=== PATIENT | female | born 1955 | race Caucasian/White ===

== ENCOUNTER 2017-06-09 15:48 | Emergency (ER) | payer MEDICARE, OTHER ==
[~2017-06-09] VITALS: Ht 157.5 cm; Wt 63.6 kg
[~2017-06-09 15:48] MED LIST: METF500T4 PO
[2017-06-09] MEDS ORDERED: ONDANSETRON 2MG/ML, 2ML IVPush ONE (16:00)
[2017-06-09] MEDS ORDERED: SODIUM CHLORIDE 0.9% 1,000ML IVBOLUS ONE (16:00)
[2017-06-09] MEDS ORDERED: SODIUM CHLORIDE FLUSH 10ML SYR IVF ONE (16:00)
[2017-06-09 16:17] LABS: HEMATOCRIT 42.5 % (34.6-47.8); HEMOGLOBIN 14.5 g/dL (11.7-16.4); WHITE BLOOD COUNT 13.4 x10^3/uL (3.4-10)
[2017-06-09 16:30] LABS: BLOOD UREA NITROGEN 11 mg/dL (7-18)
[2017-06-09 16:35] LABS: IS PT STATUS REG ER OR PRE ER? YES
[2017-06-09 17:26] VITALS: BP 117/72
== END 2017-06-09 17:31 | disposition home or self-care (01) ==
LOC: ED 16:16
DX: J20.9 Acute bronchitis, unspecified (principal); I10 Essential (primary) hypertension; E11.9 Type 2 diabetes mellitus without complications; E78.5 Hyperlipidemia, unspecified; R07.9 Chest pain, unspecified
CPT/HCPCS: 36415; 71010; 80048; 82040; 83605; 83880; 84484; 85025; 93005; 96360; 99285; J7030

== ENCOUNTER 2018-01-31 16:34 | Inpatient (IN) | payer MEDICARE, OTHER ==
[~2018-01-31] VITALS: Ht 157.5 cm; Wt 51.4 kg
[2018-01-31] MEDS ORDERED: MORPHINE SULFATE 4 MG/ML, 1ML IVPush PRN (17:00)
[2018-01-31] MEDS ORDERED: SODIUM CHLORIDE 0.9% 1,000ML IVBOLUS ONE (17:00)
[2018-01-31] MEDS ORDERED: SODIUM CHLORIDE FLUSH 10ML SYR IVF ONE (17:00)
[2018-01-31] MEDS ORDERED: ONDANSETRON ODT 4 MG PO ONE (17:00)
[2018-01-31 17:11] LABS: MEAN CORPUSCULAR HEMOGLOBIN 28.5 pg (27.0-34.8); MEAN CORPUSCULAR HGB CONC 33.1 g/dL (32.4-35.8); MEAN CORPUSCULAR VOLUME 86.2 fL (80-100); MEAN PLATELET VOLUME 9.6 fL (7.4-10.4); PLATELET COUNT 345 x10^3/uL (130-400); RED BLOOD COUNT 5.11 x10^6/uL (3.82-5.3); RED CELL DISTRIBUTION WIDTH 14.6 % (9.6-15.2)
[2018-01-31] MEDS ORDERED: GABA300C PO (17:15)
[2018-01-31 17:22] LABS: ALANINE AMINOTRANSFERASE 19 U/L (12-78); ANION GAP 7 mmol/L (5-15); CALCIUM 9.2 mg/dL (8.5-10.1); CHLORIDE 106 mmol/L (98-107); CREATININE 0.61 mg/dL (0.55-1.02)
[2018-01-31 17:24] LABS: ALKALINE PHOSPHATASE 135 U/L (45-117); BILIRUBIN,TOTAL 0.3 mg/dL (0.2-1.0); TOTAL PROTEIN 7.6 g/dL (6.4-8.2)
[2018-01-31] MEDS ORDERED: ONDANSETRON ODT 4 MG ONE (17:27)
[2018-01-31] MEDS ORDERED: MORPHINE SULFATE 4 MG/ML, 1ML ONE (17:27)
[2018-01-31 17:32] LABS: MICROSCOPIC AUTO
[2018-01-31 17:33] LABS: CULTURE INDICATED? NO
[2018-01-31 18:21] LABS: BASOPHILS # (AUTO) 0.03 x10^3/uL (0-0.1); BASOPHILS % (AUTO) 0 % (0-1); EOSINOPHILS # (AUTO) 0.05 x10^3/uL (0-0.4); EOSINOPHILS % (AUTO) 0 % (1-7); LYMPHOCYTES # (AUTO) 2.87 x10^3/uL (1-3.4); LYMPHOCYTES % (AUTO) 13 % (22-44); MONOCYTES # (AUTO) 0.97 x10^3/uL (0.2-0.8); MONOCYTES % (AUTO) 4 % (2-9); NEUTROPHILS # (AUTO) 18.02 x10^3/uL (1.8-6.8); NEUTROPHILS % (AUTO) 82 % (42-75)
[2018-01-31 18:22] LABS: <PLATELET ESTIMATE> ADEQUATE
[2018-01-31 18:23] LABS: <PLT MORPHOLOGY> NORMAL PLT MORPH
[2018-01-31 18:27] LABS: MD SCAN
[2018-01-31 18:31] LABS: <RBC MORPHOLOGY> NORMAL; LYMPH#(MANUAL) 2.85 x10^3/uL (1-3.4); LYMPHS% (MANUAL) 13 % (22-44); MONOS#(MANUAL) 0.88 x10^3/uL (0.3-2.7); MONOS% (MANUAL) 4 % (2-9); SEGS% (MANUAL) 83 % (42-75)
[2018-01-31] MEDS ORDERED: OMNIPAQUE 350 MG/ML, 100ML BOTTLE ONE (19:13)
[2018-01-31] MEDS ORDERED: CEFTRIAXONE PMX 1GM/50ML 50 ML ONE (19:44)
[2018-01-31] MEDS ORDERED: METRONIDAZOLE PMX 500MG/100ML 100 ML ONE (19:44)
[2018-01-31] MEDS ORDERED: METRONIDAZOLE PMX 500MG/100ML 100 ML IV ONE (20:00)
[2018-01-31] MEDS ORDERED: CEFTRIAXONE PMX 1GM/50ML 50 ML IV ONE (20:00)
[2018-01-31] MEDS ORDERED: LACTATED RINGERS 1,000 ML IV SCH (20:00)
[2018-01-31] MEDS ORDERED: PROCHLORPERAZINE 5 MG/ML, 2ML IVPush PRN (20:30)
[2018-01-31] MEDS ORDERED: NICOTINE 21 MG/24 HR PATCH.TD24 TD ONE (20:30)
[2018-01-31] MEDS ORDERED: morphine SULFATE 10 MG/ML, 1ML IVPush PRN (20:30)
[2018-01-31] MEDS: INSULIN LISPRO 100 UNITS/ML, PEN SQ-INSULIN SCH (21:15)
[2018-01-31] MEDS: ENOXAPARIN 40 MG/0.4 ML SQ SCH (21:24)
[2018-01-31] MEDS: SODIUM CHLORIDE 0.9% 1,000 ML IV SCH (21:24)
[2018-01-31] MEDS: METRONIDAZOLE PMX 500MG/100ML 100 ML IV SCH (21:26)
[2018-02-01] MEDS: ACETAMINOPHEN 325 MG TABLET PO PRN ×2 (02:03→08:50)
[2018-02-01 02:04] VITALS: BP 95/62
[2018-02-01] MEDS: METRONIDAZOLE PMX 500MG/100ML 100 ML IV SCH ×3 (05:40→21:53)
[2018-02-01 06:59] LABS: MEAN CORPUSCULAR HEMOGLOBIN 28.2 pg (27.0-34.8); MEAN CORPUSCULAR HGB CONC 32.4 g/dL (32.4-35.8); MEAN PLATELET VOLUME 9.3 fL (7.4-10.4); PLATELET COUNT 290 x10^3/uL (130-400); RED BLOOD COUNT 4.38 x10^6/uL (3.82-5.3); RED CELL DISTRIBUTION WIDTH 14.7 % (9.6-15.2)
[2018-02-01] MEDS: INSULIN LISPRO 100 UNITS/ML, PEN SQ-INSULIN SCH ×4 (07:00→20:26)
[2018-02-01 07:09] LABS: ANION GAP 7 mmol/L (5-15); CALCIUM 7.9 mg/dL (8.5-10.1); CHLORIDE 110 mmol/L (98-107); CREATININE 0.48 mg/dL (0.55-1.02)
[2018-02-01 07:22] LABS: BASOPHILS # (AUTO) 0.05 x10^3/uL (0-0.1); BASOPHILS % (AUTO) 1 % (0-1); EOSINOPHILS # (AUTO) 0.12 x10^3/uL (0-0.4); EOSINOPHILS % (AUTO) 1 % (1-7); LYMPHOCYTES # (AUTO) 2.68 x10^3/uL (1-3.4); LYMPHOCYTES % (AUTO) 28 % (22-44); MD SCAN; MONOCYTES # (AUTO) 0.65 x10^3/uL (0.2-0.8); MONOCYTES % (AUTO) 7 % (2-9); NEUTROPHILS # (AUTO) 6.11 x10^3/uL (1.8-6.8); NEUTROPHILS % (AUTO) 64 % (42-75)
[2018-02-01 07:51] VITALS: BP 98/68
[2018-02-01] MEDS: SODIUM CHLORIDE 0.9% 1,000 ML IV SCH ×2 (08:50→17:16)
[2018-02-01 13:16] VITALS: BP 85/55
[2018-02-01] MEDS ORDERED: LORazepam 0.5MG TABLET PO PRN (16:00)
[2018-02-01] MEDS ORDERED: MAGNESIUM SULFATE PMX 2GM/50ML 50 ML IV ONE (16:30)
[2018-02-01 19:03] VITALS: BP 121/80
[2018-02-01] MEDS: ENOXAPARIN 40 MG/0.4 ML SQ SCH (20:31)
[2018-02-01] MEDS: CEFTRIAXONE PMX 1GM/50ML 50 ML IV SCH (20:31)
[2018-02-02 00:30] VITALS: BP 100/62
[2018-02-02] MEDS: METRONIDAZOLE PMX 500MG/100ML 100 ML IV SCH ×3 (04:28→22:09)
[2018-02-02] MEDS: SODIUM CHLORIDE 0.9% 1,000 ML IV SCH ×2 (04:28→17:30)
[2018-02-02 07:20] VITALS: BP 94/66
[2018-02-02] MEDS: INSULIN LISPRO 100 UNITS/ML, PEN SQ-INSULIN SCH ×4 (07:56→20:47)
[2018-02-02 14:11] VITALS: BP 98/62
[2018-02-02 20:02] VITALS: BP 101/69
[2018-02-02] MEDS: ENOXAPARIN 40 MG/0.4 ML SQ SCH (20:32)
[2018-02-02] MEDS: CEFTRIAXONE PMX 1GM/50ML 50 ML IV SCH (20:32)
[2018-02-03 01:16] VITALS: BP 102/65
[2018-02-03] MEDS: METRONIDAZOLE PMX 500MG/100ML 100 ML IV SCH ×2 (05:46→13:40)
[2018-02-03] MEDS: SODIUM CHLORIDE 0.9% 1,000 ML IV SCH (05:53)
[2018-02-03] MEDS: INSULIN LISPRO 100 UNITS/ML, PEN SQ-INSULIN SCH ×2 (07:48→11:36)
[2018-02-03 08:07] VITALS: BP 108/69
[2018-02-03 12:46] VITALS: BP 102/66
[2018-02-03] MEDS ORDERED: CEFD300C37 PO (13:49)
[2018-02-03] MEDS ORDERED: METR500T PO (13:49)
== END 2018-02-03 15:30 | disposition home or self-care (01) | DRG 389 ==
LOC: ED 20:06 → EDIP 20:10 → 3NE 20:23
PROVIDERS: ADMIT Hospitalist; ATTEND Hospitalist
PROC: 0D9670Z Drainage of Stomach with Drainage Device, Via Natural or Artificial Opening (ICD-10-PCS; principal; 2018-01-31)
DX: K56.600 Partial intestinal obstruction, unspecified as to cause (principal); R65.10 Systemic inflammatory response syndrome (SIRS) of non-infectious origin without acute organ dysfunction; E11.40 Type 2 diabetes mellitus with diabetic neuropathy, unspecified; I10 Essential (primary) hypertension; F17.210 Nicotine dependence, cigarettes, uncomplicated; E78.5 Hyperlipidemia, unspecified; Z90.49 Acquired absence of other specified parts of digestive tract; K52.9 Noninfective gastroenteritis and colitis, unspecified
CPT/HCPCS: 36415; 74018; 74177; 80048; 80053; 81001; 82962; 83690; 83735; 84100; 85025; 93005; 96361; 96365; 96368; 96375; J0696; J1650; Q0162; Q9967; J1815; J2270; J3475; J7030; J7120

== ENCOUNTER → 2020-12-23 | Outpatient (CLI) | payer MEDICARE ==
[~2020-12-23] MED LIST changes: +ACET325T26 PO; +BUTA-177 PO; +CEFD300C37 PO; +CEFT2FRO2 IV; +FAMO10TA13 PO; +GABA300C PO; +INSU100I11 SQ-INSULIN; +LEVE500T53 PO; +METF500T17 PO; -METF500T4 PO; +METR500T PO; +POLY17PO5 PO; +TRAM50TA2 PO
== END | disposition home or self-care (01) ==
LOC: ROC 07:40
PROVIDERS: ATTEND Radiology Radiation Oncology
DX: C71.1 Malignant neoplasm of frontal lobe (principal); I10 Essential (primary) hypertension; E11.42 Type 2 diabetes mellitus with diabetic polyneuropathy; Z87.891 Personal history of nicotine dependence; Z90.49 Acquired absence of other specified parts of digestive tract
CPT/HCPCS: 99214; G0463